=== PATIENT | female | born 1955 | race Caucasian/White ===

== ENCOUNTER 2017-02-23 17:11 | Emergency (ER) | payer OTHER ==
[~2017-02-23] VITALS: Ht 162.6 cm; Wt 70.0 kg
[2017-02-23 17:13] VITALS: BP 139/81; PULSE 80; RESP 18; TEMP 99.3; O2SAT 98
[2017-02-23] MEDS ORDERED: SODIUM CHLOR 0.9% 1000 ML INJ 1,000 ML IV SCH (17:27)
[2017-02-23] MEDS ORDERED: ONDANSETRON HCL 4 MG/2 ML VIAL IVP ONE (17:30)
[2017-02-23] MEDS ORDERED: MORPHINE SULFATE 4 MG/ML INJ IV PUSH ONE (17:30)
--- NOTE | 2017-02-23 17:40 | PD ---
HPI Chief Complaint: Abdominal Pain Time Seen by Provider: 17:27 Travel History International Travel<30 days: No Contact w/Intl Traveler<30days: No Traveled to known affect area: No History of Present Illness HPI HISTORY OF CHRONIC VENTRAL HERNIAS GOING BACK TO 2006 AND MULTIPLE REPAIRS , WITH MULTIPLE COMPLICATIONS INCLUDING MESH INFECTION WITH MESH REMOVAL AND REPEAT REPAIR. PATIENT HAS HAD MULTIPLE SURGEONS IN [facility], AND LAST ONE SHE SAW WITH ONE VISIT [address] REYES. PATIENT STATES SHE HAS HAD INTERMITTENT , CRAMPY ABD PAIN, 6/10 FOR PAST 2 WEEKS....DENIES FEVER/N/V/D/CP/LARA AT THIS TIME NKDA PFSH Social History Tobacco Use: No Allergies-Medications (Allergen,Severity, Reaction): Coded Allergies: No Known Allergies (Unverified , 02/23/17) Reported Meds & Prescriptions Reported Meds & Active Scripts Active Zofran Odt (Ondansetron Odt) 4 Mg Tab 4 Mg SL Q6HR PRN Ultram (Tramadol HCl) 50 Mg Tab 50 Mg PO Q6H PRN Review of Systems Except as stated in HPI: all other systems reviewed are Neg General / Constitutional: No: Fever Eyes: No: Visual changes HENT: No: Headaches Cardiovascular: No: Chest Pain or Discomfort Respiratory: No: Shortness of Breath Gastrointestinal: Positive: Abdominal Pain Genitourinary: No: Dysuria Musculoskeletal: No: Pain Skin: No Rash Neurologic: No: Weakness Psychiatric: No: Depression Endocrine: No: Polydipsia Hematologic/Lymphatic: No: Easy Bruising Physical Exam Narrative GENERAL: SKIN: Warm and dry. HEAD: Atraumatic. Normocephalic. EYES: Pupils equal and round. No scleral icterus. No injection or drainage. ENT: No nasal bleeding or discharge. Mucous membranes pink and moist. NECK: Trachea midline. No JVD. CARDIOVASCULAR: Regular rate and rhythm. RESPIRATORY: No accessory muscle use. Clear to auscultation. Breath sounds equal bilaterally. GASTROINTESTINAL: Abdomen SOFT, MILDLY TT PALPATION OVER LUQ , nondistended. HYPOACTIVE BOWEL SOUNDS MUSCULOSKELETAL: Extremities without clubbing, cyanosis, or edema. No obvious deformities. NEUROLOGICAL: Awake and alert. No obvious cranial nerve deficits. Motor grossly within normal limits. Five out of 5 muscle strength in the arms and legs. Normal speech. PSYCHIATRIC: Appropriate mood and affect; insight and judgment normal. Data Data Last Documented VS Orders Orders Complete Blood Count With Diff (02/23/17 17:27) Comprehensive Metabolic Panel (02/23/17:) Lipase (02/23/17) Prothrombin Time / Inr (Pt) (02/23/17) Act Partial Throm Time (Ptt) (02/23/17:) Ct Abd/Pel W/O Iv Contrast (02/23/17:) Iv Access Insert/Monitor (02/23/17) Ecg Monitoring (02/23/17) Oximetry (02/23/17:) Morphine Inj (Morphine Inj) (02/23/17:30) Ondansetron Inj (Zofran Inj) (02/23/17:) Sodium Chlor 0.9% 1000 Ml Inj (Ns 1000 M (02/23/17 17:) Electrocardiogram (02/23/17:) Ed Discharge Order (02/23/17 19:02) Labs Laboratory Tests Test 02/23/17 17:45 White Blood Count 8.9 TH/MM3 Red Blood Count 4.01 MIL/MM3 Hemoglobin 13.0 GM/DL Hematocrit 37.4 % Mean Corpuscular Volume 93.3 FL Mean Corpuscular Hemoglobin 32.4 PG Mean Corpuscular Hemoglobin Concent 34.7 % Red Cell Distribution Width 12.5 % Platelet Count 249 TH/MM3 Mean Platelet Volume 8.5 FL Neutrophils (%) (Auto) 55.4 % Lymphocytes (%) (Auto) 34.9 % Monocytes (%) (Auto) 8.5 % Eosinophils (%) (Auto) 0.4 % Basophils (%) (Auto) 0.8 % Neutrophils # (Auto) 4.9 TH/MM3 Lymphocytes # (Auto) 3.1 TH/MM3 Monocytes # (Auto) 0.8 TH/MM3 Eosinophils # (Auto) 0.0 TH/MM3 Basophils # (Auto) 0.1 TH/MM3 CBC Comment DIFF FINAL Differential Comment Prothrombin Time 10.7 SEC Prothromb Time International Ratio 1.0 RATIO Activated Partial Thromboplast Time 24.3 SEC Blood Urea Nitrogen 21 MG/DL Creatinine 0.87 MG/DL Random Glucose 93 MG/DL Total Protein 7.6 GM/DL Albumin 4.1 GM/DL Calcium Level 9.7 MG/DL Alkaline Phosphatase 62 U/L Aspartate Amino Transf (AST/SGOT) 15 U/L Alanine Aminotransferase (ALT/SGPT) 19 U/L Total Bilirubin 0.4 MG/DL Sodium Level 138 MEQ/L Potassium Level 3.4 MEQ/L Chloride Level 105 MEQ/L Carbon Dioxide Level 22.6 MEQ/L Anion Gap 10 MEQ/L Estimat Glomerular Filtration Rate 66 ML/MIN Lipase 121 U/L MDM Medical Decision Making Medical Screen Exam Complete: Yes Emergency Medical Condition: Yes Medical Record Reviewed: Yes Differential Diagnosis ILEUS V SBO V ANATOMOTIC COMPLICATIONS Narrative Course CBC, CMP WERE WNL, CT ABD DID NOT SHOW E/O SBO OR ILEUS HOWEVER DID SHOW AN ABNL IN LEFT ADNEXAL REGION WHICH PATIENT WAS MADE AWARE OF AND GIVEN REFERRAL TO FOLLOW UP WITH MEDICAL PROGRAM SPECIALIST Diagnosis Primary Impression: ABDOMINAL PAIN Referrals: Femi Reyes MD PLEASE FOLLOW UP FOR FURTHER CARE. Tate Palmer MD PLEASE FOLLOW UP FOR POSSIBLE LEFT ADNEXAL CYST NOTED ON CAT SCAN. Patient Instructions: Abdominal Pain (ED), General Instructions Scripts Ondansetron Odt (Zofran Odt) 4 Mg Tab 4 MG SL Q6HR Y for Nausea/Vomiting, #20 TAB 0 Refills Prov: Eddie Syed MD 02/23/17 Tramadol (Ultram) 50 Mg Tab 50 MG PO Q6H Y for PAIN, #20 TAB 0 Refills Prov: Eddie Syed MD 02/23/17 Eddie Syed MD Feb 23, 2017 17:40
[2017-02-23 18:08] LABS: AUTOMATED NEUTROPHIL # 4.9 TH/MM3 (1.8-7.7); BASOPHIL # 0.1 TH/MM3 (0-0.2); BASOPHIL % 0.8 % (0.0-2.0); EOSINOPHIL % 0.4 % (0.0-4.0); HEMATOCRIT 37.4 % (35.0-46.0); LYMPH % 34.9 % (9.0-44.0); LYMPHOCYTE # 3.1 TH/MM3 (1.0-4.8); MEAN CELL VOLUME 93.3 FL (80.0-100.0); MEAN CORPUSCULAR HEMOGLOBIN 32.4 PG (27.0-34.0); MEAN CORPUSCULAR HGB CONC 34.7 % (32.0-36.0); MEAN PLATELET VOLUME 8.5 FL (7.0-11.0); MONO % 8.5 % (0.0-8.0); MONOCYTE # 0.8 TH/MM3 (0-0.9); NEUT % 55.4 % (16.0-70.0); PLATELET COUNT 249 TH/MM3 (150-450); RED BLOOD COUNT 4.01 MIL/MM3 (4.00-5.30); RED CELL DISTRIBUTION WIDTH 12.5 % (11.6-17.2); WHITE BLOOD COUNT 8.9 TH/MM3 (4.0-11.0)
[2017-02-23 18:26] LABS: ALBUMIN 4.1 GM/DL (3.4-5.0); BICARBONATE 22.6 MEQ/L (21.0-32.0); BLOOD UREA NITROGEN 21 MG/DL (7-18); CALCIUM 9.7 MG/DL (8.5-10.1); CHLORIDE 105 MEQ/L (98-107); CREATININE 0.87 MG/DL (0.50-1.00); GLOMERULAR FILTRATION RATE 66 ML/MIN (>89); GLUCOSE,RANDOM 93 MG/DL (74-106); LIPASE 121 U/L (73-393); SODIUM (NA) 138 MEQ/L (136-145)
[2017-02-23 18:27] LABS: ALT (GPT) 19 U/L (10-53); AST (GOT) 15 U/L (15-37)
[2017-02-23 18:29] LABS: ALKALINE PHOSPHATASE 62 U/L (45-117); TOTAL BILIRUBIN ADULT 0.4 MG/DL (0.2-1.0); TOTAL PROTEIN 7.6 GM/DL (6.4-8.2)
[2017-02-23 18:33] LABS: PROTHROMBIN TIME - PATIENT 10.7 SEC (9.8-11.6)
[2017-02-23 18:34] VITALS: BP 146/74; PULSE 60; RESP 18; O2SAT 98
--- NOTE | 2017-02-23 18:51 | RADRPT ---
EXAM DATE/TIME: 02/23/2017 18:12 [facility] COMPARISON: No previous studies available for comparison. INDICATIONS : Abdomen pain with possible hernia. ORAL CONTRAST: No oral contrast ingested. RADIATION DOSE: 8.00 CTDIvol (mGy) MEDICAL HISTORY : None SURGICAL HISTORY : Cholecystectomy. Hernia ENCOUNTER: Initial ACUITY: 1 day PAIN SCALE: 8/10 LOCATION: Bilateral abdomen TECHNIQUE: Volumetric scanning of the abdomen and pelvis was performed. Using automated exposure control and ad justment of the mA and/or kV according to patient size, radiation dose was kept as low as reasonably achievable to obtain optimal diagnostic quality images. DICOM format image data is available electro nically for review and comparison. FINDINGS: LOWER LUNGS: Minimal atelectasis or infiltrate in the left lung base. LIVER: Homogeneous density without lesion. There is no dilation of the biliary tree. No calcified gallston es. SPLEEN: Normal size without lesion. PANCREAS: Within normal limits. KIDNEYS: Normal in size and shape. There is no mass, stone, or hydronephrosis. ADRENAL GLANDS: Within normal limits. VASCULAR: There is no aortic aneurysm. BOWEL/MESENTERY: Evidence of previous bowel surgery with several small bowel anastomoses present. Low rectal anastomos is. Distal colonic diverticula without evidence of focal inflammatory change or obstruction. ABDOMINAL WALL: Previous extensive mesh reconstruction. No evidence of residual or recurrent hernia RETROPERITONEUM: There is no lymphadenopathy. BLADDER: No wall thickening or mass. REPRODUCTIVE: 5 cm solid-appearing left adnexal region mass. INGUINAL: Shotty inguinal nodes, largest on the right side measuring about 18 mm MUSCULOSKELETAL: Within normal limits for patient age. CONCLUSION: No specific explanation for abdominal pain. No evidence of hernia. Solid-appearing left adnexal mass needs followup with pelvic sonography and/or MRI on an elective bas is. Brian Rodriguez MD on February 23, 2017 at 18:40 Board Certified Radiologist. This report was verified electronically.
[2017-02-23 19:07] VITALS: BP 143/77; PULSE 71; RESP 18; O2SAT 100
[2017-02-23] MEDS ORDERED: ULTR50TA5 PO (19:10)
[2017-02-23] MEDS ORDERED: ZOFR4TAB3 SL (19:10)
--- NOTE | 2017-02-24 14:49 | EKG ---
Date Performed: 02/23/2017 Time Performed: 17:50:12 PTAGE: 61 years EKG: Sinus rhythm POSSIBLE RIGHT VENTRICULAR CONDUCTION DELAY BORDERLINE ECG NO PREVIOUS TRACING DOCTOR: Lilliam Cole Interpretating Date/Time 02/24/2017 14:45:09
== END 2017-02-23 19:22 | disposition home or self-care (01) ==
LOC: NEPE 17:11
DX: R10.9 Unspecified abdominal pain (principal); Z79.899 Other long term (current) drug therapy
CPT/HCPCS: 74176; 80053; 83690; 85025; 85610; 85730; 93005; 96361; 96374; 96375; 99285; J2270; J2405; J7030

== ENCOUNTER 2017-04-26 05:28 | Inpatient (IN) | payer OTHER ==
[~2017-04-26] VITALS: Ht 162.6 cm; Wt 84.5 kg
[~2017-04-26 05:28] MED LIST: CALC1TAB87 PO; CELE100C PO; MULT-65 PO
[2017-04-26] MEDS ORDERED: POVIDONE IODINE 7.5% SCRUB 118 ML BOTTLE TOPICAL SCH (06:00)
[2017-04-26] MEDS ORDERED: LACTATED RINGER'S 1000 ML IV PRN (06:00)
[2017-04-26] MEDS ORDERED: ceFAZolin 2 GM PREMIX 50 ML IV SCH (06:00)
[2017-04-26] MEDS ORDERED: POVIDONE IODINE 5% (ANTISEPSIS KIT) 4 APPLICATIONS EACH NARE PRN (06:00)
[2017-04-26] MEDS ORDERED: SODIUM CHLORID 0.9% 500 ML IV PRN (06:00)
[2017-04-26] MEDS ORDERED: CHLORHEXIDINE GLUCONATE 2 % 1 PACK (2 CLOTHS) TOPICAL PRN (06:00)
[2017-04-26] MEDS ORDERED: VANCOMYCIN 1000 MG/NS 250 ML (for <70 kg) IV SCH ×2 (06:00)
[2017-04-26] MEDS ORDERED: METOPROLOL TARTRATE 25 MG TAB PO PRN (06:00)
[2017-04-26] MEDS ORDERED: GENTAMICIN SULFATE 80 MG/2 ML VIAL ONE (06:16)
[2017-04-26] MEDS ORDERED: BUPIVACAINE LIPOSOME PF 1.3% 20 ML VIAL ONE (07:00)
[2017-04-26] MEDS ORDERED: SUGAMMADEX SODIUM 200 MG/2 ML VIAL IV PUSH ONE (07:09)
[2017-04-26] MEDS ORDERED: PROPOFOL 500 MG/50 ML INJ 50 ML ONE (07:15)
[2017-04-26] MEDS ORDERED: SODIUM CHLORIDE 0.9% IV SCH ×2 (07:30→11:30)
[2017-04-26] MEDS ORDERED: TRANEXAMIC ACID IV SCH ×2 (07:30→11:30)
[2017-04-26] MEDS ORDERED: EXPAREL PERI-ARTICULAR INJECTION (TOTAL VOL. 60 ML) P-ARTICULR SCH ×2 (07:30)
[2017-04-26] MEDS ORDERED: MORPHINE SULFATE 30 MG/30 ML PCA IV SCH (09:30)
[2017-04-26] MEDS ORDERED: TEMAZEPAM 15 MG CAP PO PRN (09:30)
[2017-04-26] MEDS ORDERED: MISCELLANEOUS NURSING INFORMATION XX PRN (09:30)
[2017-04-26] MEDS ORDERED: oxyCODONE/ACETAMINOPHEN 5 MG/325 MG TAB PO PRN (09:30)
[2017-04-26] MEDS ORDERED: NALOXONE HCL 0.4 MG/ML AMP IV PUSH PRN (09:30)
[2017-04-26] MEDS ORDERED: MISCELLANEOUS PHARMACY INFORMATION XX ONE (09:30)
--- NOTE | 2017-04-26 09:33 | PD.OP ---
cc: Javon Devries MD Operative Report Date of Surgery: Apr 26, 2017 Preoperative Diagnosis: Osteoarthritis left knee. Varus deformity left knee Postoperative Diagnosis: Same Procedure: Left total knee replacement arthroplasty, posterior stabilized Anesthesia: Spinal with regional block Surgeon: Javon Devries Dot Compliance Coordinator(s): CON Manzo Operation and Findings: EBL: 100 cc INDICATION: This patient presents with long-standing arthritis of the knee. Attachment record documents conservative measures. The patient now presents for surgical treatment. NOTE: Erinn Manzo PA-C was present for the entire surgical procedure as my trade sales assistant. In my medical opinion her skill and care was necessary for proper management of this patient. TOURNIQUET TIME: 57 minutes COMPANY: [employer] FEMUR: Size 2.5, posterior stabilized TIBIA: Size 0.5 PATELLA: 32 mm POLYETHYLENE INSERT: 9 mm PROCEDURE: This patient was brought the operating room and anesthetized in the supine position. The patient was positioned supine on the table. The tourniquet was placed about the thigh, and the leg was scrubbed with alcohol followed by Hibiclens followed by ChloraPrep and draped sterilely. A timeout was done, and antibiotics were given. After exsanguination the tourniquet was inflated to 250 mmHg. An anterior incision was made and a median parapatellar arthrotomy was performed. The patella was released laterally and subluxed allowing freehand cut of the patella which was then sized. A metal cap was placed over the exposed patellar surface for protection. A equipment scheduler hole was placed in the distal femur allowing a 6 valgus cut removing 10 mm from the distal femur. Anterior posterior and chamfer cuts were made. The posterior stabilize osteotomy was made. The attention was directed to the tibia. Retractors were positioned. The external alignment guide was used allowing the lateral tibia to be used as referencing guide and cut utilizing an oscillating saw taking care to avoid any injury to the surrounding soft tissues. This was sized properly. Trial reduction showed that the insert fit nicely. The patient had range of motion extension 0 flexion 120. A medial release was not necessary. The bony surfaces prepared. On the back table 2 packets of methylmethacrylate were mixed. The components were cemented. Excess cement was removed. The tourniquet let down and hemostasis was controlled. The final plastic insert was inserted. Range of motion was the same as previously noted. A drain was brought through a separate stab incision. The arthrotomy was repaired with interrupted #1 Vicryl suture, subcutaneous tissue 2-0 Vicryl suture and skin with metallic khushboo A sterile dressing was applied. Sponge counts, needle counts and instrument counts were all correct. The patient tolerated procedure well and was taken to recovery in satisfactory condition. FINDINGS: There was severe osteoarthritis with a varus deformity. Most the deformity involved the medial compartment proximal tibia. The final solution was excellent. There was no complication that was appreciated. Javon Devries MD Apr 26, 2017 09:33
[2017-04-26] MEDS ORDERED: OXYC1TAB63 PO (09:35)
[2017-04-26] MEDS ORDERED: ASPI81 CHEW (09:35)
[2017-04-26] MEDS ORDERED: Post-op Orders (for Pharmacy) XX ONE (09:46)
[2017-04-26] MEDS ORDERED: DO NOT ADM ANY ANTICOAGULANT DRUGS PRN (09:53)
[2017-04-26] MEDS: LACTATED RINGER'S 1000 ML INJ 1,000 ML IV SCH ×2 (10:00→20:52)
--- NOTE | 2017-04-26 10:18 | RADRPT ---
EXAM DATE/TIME: 04/26/2017 09:56 [facility] COMPARISON: No previous studies available for comparison. INDICATIONS : Post-op left knee arthroplasty. MEDICAL HISTORY : None. SURGICAL HISTORY : Cholecystectomy. Hernia ENCOUNTER: Initial ACUITY: 1 day PAIN SCORE: Non-responsive. LOCATION: Left knee Postsurgical features of left knee arthroplasty. Arthroplasty components are in anatomic alignment. N o significant acute bony fracture. Immediate postsurgical soft tissue features. CONCLUSION: 1. Status post left knee arthroplasty in anatomic alignment without significant acute bony fracture. Mitchell Ha MD on April 26, 2017 at 10:16 Board Certified Radiologist. This report was verified electronically.
[2017-04-26] MEDS ORDERED: *morphine SULFATE 10 MG/ML PERIprocedure ONLY ONE (10:26)
[2017-04-26] MEDS ORDERED: ASPIRIN 81 MG CHEW TAB CHEW ONE (11:00)
[2017-04-26 11:30] VITALS: BP 130/81; PULSE 69; RESP 18; TEMP 96.6; O2SAT 100
[2017-04-26] MEDS: PCA - TOTAL MG MORPHINE DELIVERED PER SHIFT SCH ×2 (14:00→20:51)
[2017-04-26 16:00] VITALS: BP 107/66; PULSE 90; RESP 18; TEMP 96.3; O2SAT 99
[2017-04-26] MEDS: MAGNESIUM HYDROXIDE SUSP 30 ML CUP PO SCH (20:50)
[2017-04-26] MEDS: SENNOSIDES 8.6 MG TAB PO SCH (20:50)
[2017-04-26] MEDS: ASPIRIN 81 MG CHEW TAB CHEW SCH (20:51)
[2017-04-26] MEDS ORDERED: WALKER WHEELS/F1 MIS (23:04)
[2017-04-26] MEDS ORDERED: COMMODE 3-IN-11 MIS (23:05)
[2017-04-26] MEDS ORDERED: CPMMACHINE (23:06)
--- NOTE | 2017-04-26 23:08 | HHI.DCPOC ---
Discharge Care Plan Diagnosis: (1) Osteoarthritis of left knee (2) Varus deformity, not elsewhere classified, left knee Your Health Problems Are: Difficulty with ADL Incision/Drains Swelling Goals to Promote Your Health * To prevent worsening of your condition and complications * To maintain your health at the optimal level Directions to Meet Your Goals Take your medications as prescribed Follow your dietary instruction Follow activity as directed Keep your appointments as scheduled Take your immunizations and boosters as scheduled If your symptoms worsen call your PCP, if no PCP go to Urgent Care Center or Emergency Room Smoking is Dangerous to Your Health. Avoid second hand smoke Call the 24-hour hour crisis hotline for domestic abuse at Ewelina Pitt Apr 26, 2017 23:08
--- NOTE | 2017-04-26 23:08 | HHI.FF ---
Face to Face Verification Diagnosis: (1) Osteoarthritis of left knee (2) Varus deformity, not elsewhere classified, left knee Physical Therapy Gait training, Safety evaluation, Transfer training, bed to chair Knee: Total knee, Protocol: Left, Full weight bearing Canvas Knee Splint: When in bed & 2 pillows btw thighs Left LE Weight Bearing: WB as tolerated Additional Instructions PT 4 days/wk for 2 weeks. WBAT LLE. TKA protocol. Walker as needed. CPM bid as tolerated, 0-60 with goal 100 flexion. Nursing RN Days per Week: 2 x Week(s): 1 Dressing Changes: Do not change dressing Additional Instructions Vitals assessment. Dressing assessment - do not change unless saturated or erythema. I have seen patient Molly Jain on 04/26/17. My clinical findings support the need for the requested home health care services because: Limited ability to care for self High risk of falls I certify that my clinical findings support that this patient is homebound because: Post-op weakness Unsteady gait/balance Ewelina Pitt Apr 26, 2017 23:08
[2017-04-26 23:11] VITALS: BP 107/51; PULSE 90; RESP 18; TEMP 96.5; O2SAT 96
--- NOTE | 2017-04-26 23:12 | HHI.DS ---
Discharge Summary Admission Date Apr 26, 2017 at 05:28 Discharge Date: Apr 28, 2017 Admitting Diagnosis see below Diagnosis: (1) Osteoarthritis of left knee Diagnosis: Principal ICD Codes: M17.12 - Unilateral primary osteoarthritis, left knee (2) Varus deformity, not elsewhere classified, left knee Diagnosis: Principal ICD Codes: M21.162 - Varus deformity, not elsewhere classified, left knee Procedures Left total knee arthroplasty, posterior-stabilized Brief History This is a 61 year old female patient with a long history of left knee pain. She self-treated for years with ice, heat, ointments and over the counter braces. Her pain began to increase October 2016. She sought out treatment with her PCP who ordered xrays and referred her to orthopaedics. Physical therapy was ordered. She was given an intra-articular knee injection and a prescription of diclofenac. She was only able to get temporary relief. Surgical treatment was recommended in the form of left total knee arthroplasty and she agreed to move forward. She now presents for the above procedure. Hospital Course Surgical treatment was performed on the day of admission without complication. She recovered well in PACU and was transferred to the orthopaedic floor. Pain was controlled with IV and oral medications. DVT prophylaxis was initiated pod# 1 with ASA 81mg bid. She was compliant with physical therapy, all TKA restrictions and her CKS. After 2 days she was found to be stable and discharged home with home health care. She was educated to continue her therapy at home, pursue a high fiber diet for 5-7 days and to ice and elevate the operative leg 2-3 times daily. She was given outpatient prescriptions of Percocet 5mg and ASA 81mg 2 tabs daily for 30 days. Pt Condition on Discharge: Stable Discharge Disposition: Disch w/ Home Health Serv Discharge Instructions Diet Instructions: As Tolerated, No Restrictions, High Fiber Diet Activities You Can Perform: Weight Bearing as Abby Activities to Avoid: Strenuous Activity Additional Activity Instruc.: TKA protocol. CPM as written. New Medications: Commode 3-in-1 (Commode 3-in-1) 1 Mis Mis EA .ROUTE DIRECTED, #1 0 Refills CPM-Continuous Passive Motion Machine (CPM-Continuous Passive Motion Machine) 1 Ea Device EA .ROUTE DIRECTED, #1 0 Refills Walker with Front Wheels (Walker with Front Wheels) 1 Mis Mis EA .ROUTE DIRECTED, #1 0 Refills Aspirin (Tgt Aspirin) 81 Mg Chw 81 MG CHEW BID for Prevent Blood Clot for 30 Days, #60 EA Oxycodone HCl/Acetaminophen (Oxycodone-Acetaminophen 5-325) 5 Mg-325 Mg Tablet 1 TAB PO Q4H PRN for PAIN, #50 TAB Continued Medications: Calcium Carbonate-Cholecalciferol (Calcium 600 with Vitamin D) 600-400 mg-Unit Tab 1 TAB PO DAILY for Calcium Supplement, TAB 0 Refills Celecoxib (Celebrex) 100 Mg Cap 100 MG PO BID for Pain Management, CAP 0 Refills Multiple Vitamin (Multi-Vitamin Daily) 1 Tab Tab 1 TAB PO DAILY for Nutritional Supplement, TAB 0 Refills Ewelina Pitt Apr 26, 2017 23:12
[2017-04-27] VITALS (7 sets, daily range): BP systolic 99–112; BP diastolic 50–66; PULSE 73–94; RESP 16–18; TEMP 96.6–99.8; O2SAT 93–99
[2017-04-27] MEDS: PCA - TOTAL MG MORPHINE DELIVERED PER SHIFT SCH (06:00)
[2017-04-27 07:12] LABS: HEMOGLOBIN 10.7 GM/DL (11.6-15.3)
[2017-04-27] MEDS: MAGNESIUM HYDROXIDE SUSP 30 ML CUP PO SCH ×2 (09:06→21:00)
[2017-04-27] MEDS: ASPIRIN 81 MG CHEW TAB CHEW SCH ×2 (09:06→21:07)
[2017-04-27] MEDS: LACTATED RINGER'S 1000 ML INJ 1,000 ML IV SCH ×2 (11:00→21:08)
--- NOTE | 2017-04-27 13:13 | PD.ORT.PN ---
Subjective Subjective Remarks Moderate left knee pain. Substantial aching. No new radiating leg pain. Has questions about discharge as she is coordinating a ride. No new CP or SOB. Objective Vitals Vital Signs Date Time Temp Pulse Resp B/P (MAP) Pulse Ox O2 Delivery O2 Flow Rate FiO2 04/27/17 09:46 93 04/27/17 08:00 98.2 75 18 104/55 (71) 93 04/27/17 06:00 18 04/27/17 05:06 98.3 86 16 108/62 (77) 95 04/27/17 01:09 96.6 86 16 99/55 (70) 95 04/26/17 23:11 96.5 90 18 107/51 (69) 96 04/26/17 20:51 18 04/26/17 16:00 96.3 90 18 107/66 (80) 99 I/O 04/26/17 04/26/17 04/26/17 04/27/17 04/27/17 04/27/17 07:00 15:00 23:00 07:00 15:00 23:00 Intake Total 2160 ml Output Total 2000 ml 190 ml 30 ml 650 ml Balance 160 ml -190 ml -30 ml -650 ml Intake Oral 360 ml Other 1800 ml Output Urine Total 1900 ml 650 ml Drainage Total 190 ml 30 ml Estimated Blood Loss 100 ml # Bowel Movements 0 Result Diagram: 04/27/17 0619 Procedures Left total knee arthroplasty, posterior-stabilized Objective Remarks Sitting up in bed NAD Friend at bedside LLE Left knee dressing c/d/i, drain in place lateral, mild swelling, no erythema +motor at, +sens, +nvi Neg homans Assessment & Plan Ortho Post Op Day #: 1 Problem List: (1) Osteoarthritis of left knee ICD Codes: M17.12 - Unilateral primary osteoarthritis, left knee Qualifiers: Qualified Codes: M17.12 - Unilateral primary osteoarthritis, left knee (2) Varus deformity, not elsewhere classified, left knee ICD Codes: M21.162 - Varus deformity, not elsewhere classified, left knee Assessment and Plan pod#1 s/p L TKA Ortho stable. D/C left knee drain. Ok to redress drain site only. Hold dressing changes otherwise. ASA 81mg bid for 15 days. PT - WBAT LLE. CPM bid as tolerated. Walker as needed. Percocet written outpatient. D/C planning, likely d/c home a [facility] tomorrow. F2F written. Ewelina Pitt Apr 27, 2017 13:13
[2017-04-27] MEDS ORDERED: BISACODYL EC 5 MG TABEC PO PRN (13:30)
[2017-04-27] MEDS: oxyCODONE/ACETAMINOPHEN 5 MG/325 MG TAB PO PRN ×2 (18:43→23:14)
[2017-04-27] MEDS: SENNOSIDES 8.6 MG TAB PO SCH (21:07)
[2017-04-28 04:00] VITALS: BP 134/73; PULSE 89; RESP 16; TEMP 97.9; O2SAT 95
[2017-04-28] MEDS: oxyCODONE/ACETAMINOPHEN 5 MG/325 MG TAB PO PRN ×3 (04:32→13:26)
--- NOTE | 2017-04-28 06:55 | PD.ORT.PN ---
Subjective Subjective Remarks She looks quite good. Pain well controlled. No new issues Objective Vitals Vital Signs Date Time Temp Pulse Resp B/P (MAP) Pulse Ox O2 Delivery O2 Flow Rate FiO2 04/28/17 04:00 97.9 89 16 134/73 (93) 95 04/27/17 19:35 99.8 94 16 107/50 (69) 97 04/27/17 16:00 98.9 89 18 112/66 (81) 97 04/27/17 12:00 97.8 73 18 107/61 (76) 99 04/27/17 09:46 93 04/27/17 08:00 98.2 75 18 104/55 (71) 93 I/O 04/27/17 04/27/17 04/27/17 04/28/17 04/28/17 04/28/17 07:00 15:00 23:00 07:00 15:00 23:00 Intake Total 480 ml 360 ml 120 ml Output Total 30 ml 1350 ml Balance -30 ml -870 ml 360 ml 120 ml Intake Oral 480 ml 360 ml 120 ml Output Urine Total 1350 ml Drainage Total 30 ml # Voids 1 0 # Bowel Movements 0 0 0 Result Diagram: 04/27/17 0619 Procedures Left total knee arthroplasty, posterior-stabilized Objective Remarks Sitting up in bed NAD LLE Left knee dressing c/d/i, drain in place lateral, mild swelling, no erythema +motor at, +sens, +nvi Neg homans Assessment & Plan Problem List: (1) Osteoarthritis of left knee ICD Codes: M17.12 - Unilateral primary osteoarthritis, left knee Qualifiers: Qualified Codes: M17.12 - Unilateral primary osteoarthritis, left knee (2) Varus deformity, not elsewhere classified, left knee ICD Codes: M21.162 - Varus deformity, not elsewhere classified, left knee Assessment and Plan pod#2 s/p L TKA Ortho stable. No dressing change ASA 81mg bid for 30 days. PT - WBAT LLE. CPM bid as tolerated. Walker as needed. Percocet written outpatient. D/C planning, home today. Home healthcare/home physical therapy F2F written. Javon Devries MD Apr 28, 2017 06:55
[2017-04-28 08:00] VITALS: BP 112/64; PULSE 80; RESP 16; TEMP 98.5; O2SAT 96
[2017-04-28] MEDS: MAGNESIUM HYDROXIDE SUSP 30 ML CUP PO SCH (09:00)
[2017-04-28] MEDS: ASPIRIN 81 MG CHEW TAB CHEW SCH (09:03)
[2017-04-28] MEDS ORDERED: ONDANSETRON HCL 4 MG/2 ML VIAL IV PRN (09:45)
[2017-04-28] MEDS: LACTATED RINGER'S 1000 ML INJ 1,000 ML IV SCH (11:14)
[2017-04-28 12:00] VITALS: BP 102/54; PULSE 95; RESP 16; TEMP 97.1; O2SAT 96
== END 2017-04-28 17:42 | disposition home health service (06) | DRG 470 ==
LOC: HSDI 05:28 → N06B 11:41
PROVIDERS: ADMIT Orthopaedic Surgery Orthopaedic Surgery of the Spine; ATTEND Orthopaedic Surgery Orthopaedic Surgery of the Spine
PROC: 0SRD0J9 Replacement of Left Knee Joint with Synthetic Substitute, Cemented, Open Approach (ICD-10-PCS; principal; 2017-04-26 07:13)
DX: M17.12 Unilateral primary osteoarthritis, left knee (principal); M21.162 Varus deformity, not elsewhere classified, left knee; Z87.891 Personal history of nicotine dependence
CPT/HCPCS: 73560; 85014; 85018; 86850; 86900; 86901; 86920; 94150; C9290; J0690; J1580; J2270; J2405; J3370; J7050; J7120; L1830